=== PATIENT | male | born 1945 | race Caucasian/White ===

== ENCOUNTER 2022-06-13 21:29 | Inpatient (IN) | payer MEDICARE, BC ==
[~2022-06-13] VITALS: Ht 170.2 cm; Wt 68.9 kg
[~2022-06-13 21:29] MED LIST: ETOMIDATE 2MG/ML 10ML VIAL IV ONE; SODIUM CHLORIDE 0.9% 10ML VIAL ONE; SUCCINYLCHOLINE CHLORIDE 200MG/10ML IV ONE
[2022-06-13] MEDS ORDERED: ONDANSETRON HCL 4MG/2ML INJ IV STA (21:40)
[2022-06-13] MEDS ORDERED: MORPHINE SULFATE 4 MG/ML CPJ (NOT FOR IM USE) IV STA (21:40)
[2022-06-13] MEDS ORDERED: ASPIRIN 81MG TABLET PO ONE (22:15)
[2022-06-13 23:39] LABS: HEMATOCRIT. 43.7 % (42.0-52.0); HEMOGLOBIN. 14.6 g/dL (14.0-18.0); MEAN CORPUSCULAR HEMOGLOBIN 33.1 pg (28.0-32.0); MEAN CORPUSCULAR VOLUME 99.3 fL (80.0-94.0); MEAN PLATELET VOLUME 11.2 fl (7.4-10.4); RED CELL DISTRIBUTION WIDTH 15.7 % (11.6-14.6)
[2022-06-13 23:43] LABS: D-DIMER 9.1 mg/L FEU (<0.50); INR 1.2; PROTHROMBIN TIME 13.2 sec (9.6-11.0)
[2022-06-13 23:48] LABS: CHLORIDE 94 mEq/L (98-107)
[2022-06-14] VITALS (84 sets, daily range): BP systolic 63–183; BP diastolic 29–103
[2022-06-14 00:09] LABS: ETHANOL BLOOD < 10 mg/dL
[2022-06-14 00:14] LABS: PLATELET 25 x1000/uL (130-400)
[2022-06-14] MEDS ORDERED: FUROSEMIDE 20MG/2ML VIAL IVP NR (00:30)
[2022-06-14 00:37] LABS: CLARITY URINE CLEAR (CLEAR); COLOR URINE YELLOW (YELLOW); KETONES URINE NEGATIVE (NEGATIVE); LEUKOCYTE ESTERASE URINE NEGATIVE (NEGATIVE); NITRITE URINE NEGATIVE (NEGATIVE); OCCULT BLOOD URINE TRACE (NEGATIVE); PROTEIN URINE 1+ (NEGATIVE); SPECIFIC GRAVITY URINE 1.017 (1.005-1.030)
[2022-06-14] MEDS ORDERED: HALOPERIDOL LACTATE 5MG/ML VIAL IM ONE (00:45)
[2022-06-14 00:55] LABS: *AMPHETAMINES SCREEN URINE NEGATIVE (NEGATIVE); *BARBITURATES SCREEN URINE NEGATIVE (NEGATIVE); *BENZODIAZEPINES SCREEN URINE NEGATIVE (NEGATIVE); *COCAINE SCREEN URINE NEGATIVE (NEGATIVE); CANNABINOID URINE SCREEN NEGATIVE (NEGATIVE); METHADONE URINE SCREEN NEGATIVE (NEGATIVE); OPIATES URINE SCREEN PRESUMTIVE POSITIVE (NEGATIVE); PHENCYCLIDINE URINE SCREEN NEGATIVE (NEGATIVE)
[2022-06-14] MEDS ORDERED: PIPERACILLIN/TAZ 3.375G PREMIX 50 ML IV NR (01:15)
[2022-06-14 02:06] LABS: BG BASE EXCESS -19.4 mmol/L (-2.0-2.0); BG CARBOXYHEMOGLOBIN 0.1 % (0.5-1.5); BG DEOXYHEMOGLOBIN 0.2 % (0.0-5.0); BG FRACTION INSPIRED OXYGEN 100; BG HCO3 ACT 6.4 mmol/L (22.0-26.0); BG METHEMOGLOBIN 0.5 % (0.0-1.5); BG OXYGEN SATURATION 99.8 % (92.0-98.5); BG OXYHEMOGLOBIN 99.2 % (94.0-97.0); BG PCO2 17.5 mmHg (35.0-45.0); BG PH 7.183 (7.350-7.450); BG PO2 470.7 mmHg (75.0-100.0); BG SAMPLE SITE RIGHT RADIAL; BG TOTAL RESPIRATORY RATE 40 b/min; BG VENT MODE MASK - BIPAP
[2022-06-14] MEDS ORDERED: PROPOFOL 10MG/ML 100ML 100 ML IV ONE (02:30)
[2022-06-14 03:56] LABS: PLATELET ESTIMATE MARKEDLY DECREASED
[2022-06-14 05:19] LABS: BG BASE EXCESS -20.3 mmol/L (-2.0-2.0); BG CARBOXYHEMOGLOBIN 0.3 % (0.5-1.5); BG DEOXYHEMOGLOBIN 0.8 % (0.0-5.0); BG FRACTION INSPIRED OXYGEN 60; BG HCO3 ACT 10.8 mmol/L (22.0-26.0); BG METHEMOGLOBIN 0.4 % (0.0-1.5); BG OXYGEN SATURATION 99.2 % (92.0-98.5); BG OXYHEMOGLOBIN 98.5 % (94.0-97.0); BG PCO2 44.9 mmHg (35.0-45.0); BG PH 6.999 (7.350-7.450); BG PO2 263.7 mmHg (75.0-100.0); BG SAMPLE SITE RIGHT RADIAL; BG TOTAL HEMOGLOBIN 14.8 g/dL (12.0-18.0); BG TOTAL RESPIRATORY RATE 18 b/min; BG VENT MODE VENT - AC
[2022-06-14] MEDS ORDERED: SODIUM BICARBONATE 8.4% 1 MEQ/ML 50ML SYR IV NR (07:00)
[2022-06-14] MEDS ORDERED: NOREPINEPHRINE 8MG/250ML PMX 250 ML IV ONE (07:00)
[2022-06-14] MEDS: NOREPINEPHRINE 8 MG in DEXTROSE 5% WATER 250 ML IV PRN ×2 (07:39→18:00)
[2022-06-14] MEDS ORDERED: EPINEPHRINE 0.1MG/ML (1:10,000) 10ML SYR ONE (08:08)
[2022-06-14] MEDS ORDERED: SODIUM BICARBONATE 8.4% 1 MEQ/ML 50ML SYR IV ONE (08:08)
[2022-06-14] MEDS ORDERED: SODIUM CHLORIDE 0.9% 1,000 ML IV SCH (09:15)
[2022-06-14] MEDS ORDERED: PANTOPRAZOLE SODIUM 40 MG/VIAL IV SCH (09:30)
[2022-06-14 09:36] LABS: BG BASE EXCESS -12.5 mmol/L (-2.0-2.0); BG CARBOXYHEMOGLOBIN 0.2 % (0.5-1.5); BG DEOXYHEMOGLOBIN 0.7 % (0.0-5.0); BG FRACTION INSPIRED OXYGEN 60; BG HCO3 ACT 14.2 mmol/L (22.0-26.0); BG METHEMOGLOBIN 0.3 % (0.0-1.5); BG OXYGEN SATURATION 99.3 % (92.0-98.5); BG OXYHEMOGLOBIN 98.8 % (94.0-97.0); BG PCO2 35.3 mmHg (35.0-45.0); BG PH 7.222 (7.350-7.450); BG PO2 216.4 mmHg (75.0-100.0); BG SAMPLE SITE LEFT BRACHIAL; BG TOTAL HEMOGLOBIN 14.4 g/dL (12.0-18.0); BG VENT MODE VENT - AC
[2022-06-14] MEDS ORDERED: SODIUM CHLORIDE 0.9% 500 ML IV ONE (09:45)
[2022-06-14] MEDS ORDERED: CEFEPIME 1,000 MG in DEXTROSE 5% WATER 50 ML IV SCH (10:00)
[2022-06-14] MEDS ORDERED: VANCOMYCIN 1,750 MG in DEXT 5% WATER 500 ML IV NR (11:00)
[2022-06-14 11:14] LABS: HEMATOCRIT. 42.3 % (42.0-52.0); HEMOGLOBIN. 13.9 g/dL (14.0-18.0); MEAN CORPUSCULAR HEMOGLOBIN 32.9 pg (28.0-32.0); MEAN CORPUSCULAR VOLUME 100.6 fL (80.0-94.0); MEAN PLATELET VOLUME 10.6 fl (7.4-10.4); RED BLOOD CELL COUNT 4.21 mill/uL (4.7-6.1)
[2022-06-14 11:26] LABS: PLATELET 25 x1000/uL (130-400)
[2022-06-14 12:17] LABS: NUCLEATED RED BLOOD CELLS 1 /100 WBC
[2022-06-14 12:18] LABS: PLATELET ESTIMATE MARKEDLY DECREASED
[2022-06-14] MEDS ORDERED: SODIUM BICARBONATE 100 MEQ in DEXTROSE 5% WATER 1,000 ML IV SCH (13:00)
[2022-06-14] MEDS ORDERED: SODIUM BICARBONATE 150 MEQ in DEXTROSE 5% WATER 1,000 ML IV SCH (16:00)
[2022-06-14] MEDS: BLOOD SUGAR DIAGNOSTIC STRIP TEST SCH ×2 (16:47→20:29)
[2022-06-14] MEDS: DEXTROSE 50% WATER 50ML SYRINGE IV PRN ×2 (16:57→17:25)
[2022-06-14] MEDS: INSULIN LISPRO 100 UNITS/ML SUBCUT SCH ×2 (17:00→20:29)
[2022-06-14] MEDS ORDERED: LOSA1TAB37 PO (18:38)
[2022-06-14] MEDS ORDERED: ALLO100T PO (18:38)
[2022-06-14] MEDS ORDERED: HYDR-4001 MT (18:38)
[2022-06-14] MEDS ORDERED: METF-416 PO (18:38)
[2022-06-14] MEDS ORDERED: ATOR10TA69 PO (18:38)
[2022-06-14] MEDS ORDERED: AMLO2.5T2 PO (18:38)
[2022-06-14] MEDS ORDERED: CLOP75TA33 PO (18:38)
[2022-06-14] MEDS ORDERED: METO-385 PO (18:38)
[2022-06-14] MEDS ORDERED: NOREPINEPHRINE 32 MG in DEXT 5% WATER 218 ML IV PRN (22:00)
[2022-06-15] MEDS ORDERED: VANCOMYCIN 1GM PMX (XELLIA) 200 ML IV SCH (23:00)
== END 2022-06-14 22:14 | DRG 871 ==
LOC: ER 21:29 → MICUSO 06-14 02:29 → EDBEDREQSVC 06-14 02:36 → EDBEDREQDT 06-14 02:36 → EDBEDREQTM 06-14 02:36 → EDBEDREQ 06-14 02:36 → MICUSO 06-14 05:45
PROVIDERS: ADMIT Internal Medicine; ATTEND Internal Medicine
PROC: 5A1935Z Respiratory Ventilation, Less than 24 Consecutive Hours (ICD-10-PCS; principal; 2022-06-14)
PROC: 0BH17EZ Insertion of Endotracheal Airway into Trachea, Via Natural or Artificial Opening (ICD-10-PCS; 2022-06-14)
PROC: 5A12012 Performance of Cardiac Output, Single, Manual (ICD-10-PCS; 2022-06-14)
PROC: 02HV33Z Insertion of Infusion Device into Superior Vena Cava, Percutaneous Approach (ICD-10-PCS; 2022-06-14)
PROC: B548ZZA Ultrasonography of Superior Vena Cava, Guidance (ICD-10-PCS; 2022-06-14)
PROC: 5A09357 Assistance with Respiratory Ventilation, Less than 24 Consecutive Hours, Continuous Positive Airway Pressure (ICD-10-PCS; 2022-06-14)
DX: A41.89 Other specified sepsis (principal); E43 Unspecified severe protein-calorie malnutrition; R65.21 Severe sepsis with septic shock; I21.4 Non-ST elevation (NSTEMI) myocardial infarction; N17.0 Acute kidney failure with tubular necrosis; J96.01 Acute respiratory failure with hypoxia; G93.41 Metabolic encephalopathy; E87.1 Hypo-osmolality and hyponatremia; L03.115 Cellulitis of right lower limb; I13.0 Hypertensive heart and chronic kidney disease with heart failure and stage 1 through stage 4 chronic kidney disease, or unspecified chronic kidney disease; E87.2 Acidosis; D69.6 Thrombocytopenia, unspecified; E87.8 Other disorders of electrolyte and fluid balance, not elsewhere classified; N18.9 Chronic kidney disease, unspecified; E11.22 Type 2 diabetes mellitus with diabetic chronic kidney disease; I46.9 Cardiac arrest, cause unspecified; F10.10 Alcohol abuse, uncomplicated; E78.5 Hyperlipidemia, unspecified; R74.01 Elevation of levels of liver transaminase levels; I25.10 Atherosclerotic heart disease of native coronary artery without angina pectoris; E11.649 Type 2 diabetes mellitus with hypoglycemia without coma; I50.9 Heart failure, unspecified; M10.9 Gout, unspecified; Z95.5 Presence of coronary angioplasty implant and graft; Z82.49 Family history of ischemic heart disease and other diseases of the circulatory system; Z68.23 Body mass index [BMI] 23.0-23.9, adult; Z88.5 Allergy status to narcotic agent
CPT/HCPCS: 31500; 36415; 36573; 36600; 71045; 73630; 76700; 80048; 80053; 80305; 80320; 81003; 82140; 82375; 82805; 82962; 83605; 83880; 84145; 84484; 84550; 85025; 85379; 87070; 87186; 92950; 93005; 93306; 93970; 94002; 94003; 94660; 99291; C1725; C1892; C9113; J0330; J0692; J1630; J1940; J2270; J2405; J2543; J2704; J3370; J3490; J7030; J7060; J7070; G0480